=== PATIENT | female | born 1960 | race Caucasian/White ===

== ENCOUNTER 2019-06-26 14:43 | Emergency (ER) | payer BC, MEDICAID ==
--- NOTE | 2019-06-26 15:47 | XRAY Report ---
Reason: non traumatic rib pain Procedure Date: 06/26/2019 Accession Number: [id number] / [id number] Procedure: XR - Ribs w/PA Chest RT CPT Code: FULL RESULT: EXAM: RIGHT RIB RADIOGRAPHY EXAM DATE: 06/26/2019 03:23 PM. CLINICAL HISTORY: Non traumatic rib pain. COMPARISON: 06/28/2012 2:49 PM. TECHNIQUE: 1 view of the chest and AP and bilateral oblique views of the ribs. FINDINGS: Bones: Normal. No fracture or bone lesion. Lungs: Minimal bibasal opacity may reflect atelectasis/scarring. Lungs are otherwise clear. No significant pleural effusion or evidence of pneumothorax. Mediastinum: Heart and mediastinal contours are unremarkable. Other: None. IMPRESSION: 1. No convincing acute cardiopulmonary abnormality. 2. No definite acute osseous abnormality. Please note that a nondisplaced rib fracture may be radiographically inapparent. RADIA
--- NOTE | 2019-06-26 16:07 | ED Physician Documentation ---
PD HPI CHEST PAIN - Stated complaint Stated Complaint: RIB PX - Chief complaint Chief Complaint: Resp - History obtained from History obtained from: Patient - History of Present Illness Timing - onset: How many days ago (few days ago while camping (but was on airmattress, so felt comfortable, but then cold so slept next night in car).) Timing - duration: Days (few) Timing - details: Gradual onset, Still present Quality: Aching, Pain Location: Right chest Worsened by: Inspiration, Movement, Palpation Associated symptoms: Other (denies rash nor direct injury). No: Shortness of air, Nausea, Vomiting, Cough Similar symptoms before: Has not had sx before Review of Systems Constitutional: denies: Fever, Chills, Myalgias Cardiac: denies: Palpitations Respiratory: denies: Dyspnea, Cough GI: reports: Nausea. 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 HEENT: Tonsil/Adenoidectomy - Present Medications Home Medications: Ambulatory Orders Medication Instructions Recorded Confirmed Naproxen 500 mg PO BID #20 tablet 06/26/19 Oxycodone HCl/Acetaminophen 1 each PO Q6H PRN #25 tablet 06/26/19 [Percocet 5-325 mg Tablet] Tizanidine HCl 4 mg PO TID PRN #25 capsule 06/26/19 dexAMETHasone [Decadron] 4 mg PO DAILY #5 tablet 06/26/19 - Allergies Allergies/Adverse Reactions: Allergies Allergy/AdvReac Type Severity Reaction Status Date / Time amoxicillin [Amoxicillin] AdvReac Mild Nausea Verified 06/26/19 14:56 - Social History Does the pt smoke?: Yes Smoking Status: Current some day smoker Does the pt drink ETOH?: No Does the pt have substance abuse?: No - Immunizations Immunizations: TDAP >10years/unknown PD ED PE NORMAL - Vitals Vital signs reviewed: Yes - General General: Alert and oriented X 3, Well developed/nourished, Other (seems uncomf ortable with movements and deep breathing. ) - HEENT HEENT: Pharynx benign - Neck Neck: Supple, no meningeal sign, No adenopathy - Cardiac Cardiac: RRR, No murmur - Respiratory Respiratory: Clear bilaterally, Other (right posterolateral chestwall with local tenderness without redness, skin sores, rash. ) - Abdomen Abdomen: Soft, Non tender Results - Vitals Vitals: Vital Signs - 24 hr 06/26/19 06/26/19 14:53 17:02 Temperature 36.3 C L Heart Rate 94 77 Respiratory 24 18 Rate Blood Pressure 107/64 112/64 O2 Saturation 96 97 Oxygen O2 Source Room air - Rads (name of study) chest with ribs Radiology: Prelim report reviewed (no fractures nor lung injury), See rad report PD MEDICAL DECISION MAKING - ED course Complexity details: reviewed results, re-evaluated patient (feeling improved enough with meds given in ER. ), considered differential, d/w patient Departure - Departure Disposition: 01 Home, Self Care Clinical Impression: Acute thoracic myofascial strain Qualifiers: Encounter type: initial encounter Qualified Code(s): S29.019A - Strain of muscle and tendon of unspecified wall of thorax, initial encounter Condition: Stable Record reviewed to determine appropriate education?: Yes Instructions: ED Sprain Thoracic Spine Prescriptions: dexAMETHasone [Decadron] 4 mg PO DAILY #5 tablet Naproxen 500 mg PO BID #20 tablet Oxycodone HCl/Acetaminophen [Percocet 5-325 mg Tablet] 1 each PO Q6H PRN #25 tablet PRN Reason: pain Tizanidine HCl 4 mg PO TID PRN #25 capsule PRN Reason: Spasms Comments: Gentle stretching for the chest wall muscles. Your x-ray appears normal so presume it some muscular strain from the different bed or so. Would have you take some anti-inflammatories such as naproxen twice daily with food. You could also add a steroid anti-inflammatory Decadron daily for 5 days. Tizanidine mu scle relaxant for stiffness and spasms. Add Tylenol or oxycodone as needed for pain. Recheck if not improved over the next several days or so. Return if other symptoms develop such as fevers cough rash or other symptoms that would not fit just musculoskeletal pain. Discharge Date/Time: 06/26/19 17:41
[2019-06-26] MEDS ORDERED: KETOROLAC 30 MG/ML VIAL IM STA (16:27)
[2019-06-26] MEDS ORDERED: HYDROmorphone 1 MG/ML CARPUJECT IM STA (16:27)
[2019-06-26] MEDS ORDERED: CHERRY SYRUP 10 ML UDC PO ONE (16:29)
[2019-06-26] MEDS ORDERED: DEXAMETHASONE 10 MG/ML VIAL PO STA (16:29)
[2019-06-26 17:03] VITALS: BP 112/64
== END 2019-06-26 17:41 | disposition home or self-care (01) ==
LOC: ED 14:43
DX: S29.011A Strain of muscle and tendon of front wall of thorax, initial encounter (principal); X58.XXXA Exposure to other specified factors, initial encounter; Y93.89 Activity, other specified; F17.200 Nicotine dependence, unspecified, uncomplicated
CPT/HCPCS: 71101; 96372; 99284; A9270; J1170

== ENCOUNTER 2019-07-08 17:23 | Emergency (ER) | payer MEDICAID ==
[2019-07-08 17:47] LABS: GLUCOSE, URINE (UA) NEGATIVE (NEGATIVE); KETONES,URINE (UA) TRACE mg/dL (NEGATIVE); LEUKOCYTE ESTERASE, URINE NEGATIVE (NEGATIVE); NITRITE,URINE POSITIVE (NEGATIVE); OCCULT BLOOD,URINE LARGE (NEGATIVE); PH,URINE 5.5 PH (5.0-7.5); PROTEIN,URINE 100 mg/dL (NEGATIVE); UROBILINOGEN,URINE 0.2 (NORMAL) E.U./dL (NORMAL)
[2019-07-08 17:51] LABS: BACTERIA,URINE Many /HPF (None Seen); BILIRUBIN,URINE NEGATIVE (NEGATIVE); CLARITY,URINE BLOODY (CLEAR); ICTOTEST,URINE NEGATIVE; RBC,URINE TNTC /HPF (0-5); SQUAMOUS EPITHELIAL CELL,UR NONE SEEN (<= Few)
[2019-07-08 18:24] VITALS: BP 123/68
[2019-07-08] MEDS ORDERED: NITROFURANTOIN MACRO 100 MG CAPSULE PO STA (18:37)
--- NOTE | 2019-07-08 18:40 | ED Physician Documentation ---
History of Present Illness - Stated complaint Stated Complaint: FEMALE - Chief complaint Chief Complaint: UTI - History obtained from History obtained from: Patient - History of Present Illness Timing: How many days ago (2-3) Pain level max: 0 Pain level now: 0 Improved by: nothing Worsened by: nothing - Additonal information Additional information: hematuria x2-3 days Review of Systems Constitutional: denies: Fever, Chills Respiratory: denies: Cough GI: denies: Abdominal Pain, Nausea, Vomiting : reports: Hematuria. 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 HEENT: Tonsil/Adenoidectomy - Present Medications Home Medications: Ambulatory Orders Medication Instructions Recorded Confirmed Naproxen 500 mg PO BID #20 tablet 06/26/19 Oxycodone HCl/Acetaminophen 1 each PO Q6H PRN #25 tablet 06/26/19 [Percocet 5-325 mg Tablet] Tizanidine HCl 4 mg PO TID PRN #25 capsule 06/26/19 dexAMETHasone [Decadron] 4 mg PO DAILY #5 tablet 06/26/19 Nitrofurantoin Monohyd/M-Cryst 100 mg PO BID #10 capsule 07/08/19 [Macrobid 100 mg Capsule] - Allergies Allergies/Adverse Reactions: Allergies Allergy/AdvReac Type Severity Reaction Status Date / Time amoxicillin [Amoxicillin] AdvReac Mild Nausea Verified 07/08/19 17:29 - Social History Does the pt smoke?: Yes Smoking Status: Current every day smoker Does the pt drink ETOH?: No Does the pt have substance abuse?: No - Immunizations Immunizations: TDAP >10years/unknown PD ED PE NORMAL - Vitals Vital signs reviewed: Yes - General General: Alert and oriented X 3, No acute distress - HEENT HEENT: Moist mucous membranes - Neck Neck: Supple, no meningeal sign - Cardiac Cardiac: RRR - Respiratory Respiratory: No respiratory distress, Clear bilaterally - Back Back: No CVA TTP - Derm Derm: Warm and dry - Neuro Neuro: Alert and oriented X 3 - Psych Psych: Normal mood, Normal affect Results - Vitals Vitals: Vital Signs - 24 hr 07/08/19 07/08/19 07/08/19 17:27 17:37 18:24 Temperature 36.4 C L 36.6 C Heart Rate 102 H 96 92 Respiratory 18 16 16 Rate Blood Pressure 143/86 H 158/88 H 123/68 O2 Saturation 99 100 95 Oxygen O2 Source Room air - Labs Labs: Microbiology 07/08/19 17:31 Urine Culture - Preliminary Urine,Clean Catch CULTURE IN PROGRESS. RESULTS TO FOLLOW. Laboratory Tests 07/08/19 17:31 Urine Color RED/BLOODY Urine Clarity BLOODY Urine pH 5.5 Ur Specific [place] 1.025 Urine Protein 100 H Urine Glucose (UA) NEGATIVE Urine Ketones TRACE Urine Occult Blood LARGE H Urine Nitrite POSITIVE H Urine Bilirubin NEGATIVE Urine Urobilinogen 0.2 (NORMAL) Ur Leukocyte Esterase NEGATIVE Urine RBC TNTC H Urine WBC 0-3 Ur Squamous Epith Cells NONE SEEN Urine Bacteria Many H Ur Microscopic Review INDICATED Urine Culture Comments INDICATED PD MEDICAL DECISION MAKING - ED course Complexity details: reviewed results, considered differential, d/w patient ED course: 59-year-old female with a UTI. Will place on antibiotics and follow-up with her doctor. She is well-appearing, nontoxic. Afebrile. No evidence of ureteral stone. No evidence of pyelonephritis. No evidence of sepsis. Patient counseled regarding signs and symptoms for which I believe and urgent re- evaluation would be necessary. Patient with good understanding of and agreement to plan and is comfortable going home at this time This document was made in part using voice recognition software. While efforts are made to proofread this document, sound alike and grammatical errors may occur. Departure - Departure Disposition: 01 Home, Self Care Clinical Impression: Urinary tract infection Qualifiers: Urinary tract infection type: acute cystitis Hematuria presence: with hematuria Qualified Code(s): N30.01 - Acute cystitis with hematuria Condition: Good Instructions: ED UTI Cystitis Female Follow-Up: your,doctor in 1 week [Other] Prescriptions: Nitrofurantoin Monohyd/M-Cryst [Macrobid 100 mg Capsule] 100 mg PO BID #10 capsule Comments: Use the medications as prescribed. Return if you worsen. If you are still having symptoms after completion of treatment, you should follow-up with your doctor and likely see urology. Discharge Date/Time: 07/08/19 18:48
== END 2019-07-08 18:48 | disposition home or self-care (01) ==
LOC: ED 17:23
DX: N30.01 Acute cystitis with hematuria (principal); F17.200 Nicotine dependence, unspecified, uncomplicated
CPT/HCPCS: 81001; 87077; 87086; 87181; 99283; A9270; 81003